=== PATIENT | female | born 1985 | race Caucasian/White ===

== ENCOUNTER 2020-05-09 13:35 | Observation (INO) ==
[2020-05-09 14:25] LABS: Bilirubin,Urine Negative (Negative); Blood,Urine Large (Negative); Clarity,Urine Clear (Clear); Color,Urine Colorless (Yellow); Glucose,Urine (UA) Normal (Normal); Ketones,Urine Negative (Negative); Leukocyte Esterase,Urine Negative (Negative); Nitrite,Urine Negative (Negative); Protein,Urine Negative (Neg-Trace); RBC,Urine TNTC per hpf (0-3); Specific Gravity,Urine 1.014 (1.010-1.025); Squamous Epithelial Cell,Urine Few per hpf (None-Few); Urobilinogen,Urine Normal (Normal); WBC,Urine 0-3 per hpf (0-3)
[2020-05-09 15:16] LABS: Basophils # 0.1 K/mcL (0.0-0.2); Basophils % 0.8 %; Eosinophils # 0.2 K/mcL (0.0-0.6); Eosinophils % 1.9 %; Hematocrit 39.5 % (35.3-44.9); Hemoglobin 13.2 g/dL (11.5-15.4); Immature Granulocytes % 0.5 % (0-4); Lymphocytes # 2.6 K/mcL (0.6-4.6); Lymphocytes % 32.2 %; Mean Corpuscular HGB Conc 33.4 g/dL (31.6-35.5); Mean Corpuscular Hemoglobin 29.1 pg (28.0-33.3); Mean Platelet Volume 10.1 fL (9.4-12.4); Monocytes # 0.5 K/mcL (0.0-1.3); Monocytes % 6.7 %; Neutrophils # 4.6 K/mcL (1.6-8.9); Platelet Count 239 K/mcL (140-400); Red Blood Count 4.54 M/mcL (3.82-4.97); Red Cell Distribution Width 11.8 % (11.5-14.5); Segmented Neutrophils % 57.9 %
[2020-05-09] MEDS ORDERED: Ringers Solution, Lactated 1,000 ML IVC SCH (20:33)
[2020-05-09] MEDS ORDERED: Lidocaine -MPF 2% 2 ML VIAL ONE (21:31)
[2020-05-09] MEDS ORDERED: *HR* Propofol 200 MG/20 ML VIAL IVP ONE ×2 (21:31→22:48)
[2020-05-09] MEDS ORDERED: *HR* Midazolam HCl 2 MG/2 ML VIAL ONE (21:31)
[2020-05-09] MEDS ORDERED: *HR* FentaNYL (PF) 100 MCG/2 ML VIAL ONE (21:31)
[2020-05-09] MEDS ORDERED: Famotidine 20 MG/2 ML VIAL ONE (21:32)
[2020-05-09] MEDS ORDERED: Acetaminophen IV 1,000 MG/100 ML INFUS..BTL ONE (21:32)
[2020-05-09] MEDS ORDERED: Bupivacaine/EPI 1:200k 0.25%PF 30 ML VIAL ONE (21:36)
[2020-05-09] MEDS ORDERED: *HR* OxyCODONE Immed Rel 5 MG TABLET PO PRN (21:46)
[2020-05-09] MEDS ORDERED: *HR* Promethazine 25 MG/ML VIAL IVP PRN (21:46)
[2020-05-09] MEDS ORDERED: Ondansetron 4 MG/2 ML VIAL IVP ONE (21:46)
[2020-05-09] MEDS ORDERED: Ketorolac 30 MG/ML VIAL ONE (21:56)
[2020-05-09] MEDS ORDERED: Dexamethasone 4 MG/ML VIAL ONE ×2 (22:11)
[2020-05-09] MEDS ORDERED: Ondansetron 4 MG/2 ML VIAL ONE ×2 (22:11)
[2020-05-09] MEDS ORDERED: Morphine Sulfate 2 MG/ML SYRINGE IVP PRN (23:39)
[2020-05-10] MEDS ORDERED: *HR* OxyCODONE/APAP 5/325 TABLET PO PRN (02:40)
[2020-05-10] MEDS ORDERED: Ondansetron 4 MG/2 ML VIAL IVP PRN (02:40)
[2020-05-10] MEDS ORDERED: Ringers Solution, Lactated 1,000 ML IVC SCH (02:40)
[2020-05-10] MEDS ORDERED: *HR* OxyCODONE/APAP 10/325 TABLET PO PRN (02:40)
[2020-05-10] MEDS ORDERED: Naloxone 0.4 MG/ML INJ IVP PRN (02:40)
[2020-05-10 08:29] VITALS: BP 90/50
== END 2020-05-10 09:29 | disposition home or self-care (01) | DRG 547 ==
LOC: 1NENUOBS 13:35 → EMEROOARM 13:35 → 1NENUOBS 20:07
PROVIDERS: ADMIT Obstetrics & Gynecology; ATTEND Obstetrics & Gynecology